=== PATIENT | male | born 1980 | race Caucasian/White ===

== ENCOUNTER 2025-04-18 10:07 | Outpatient (CLI) | payer SELFPAY ==
--- NOTE | 2025-04-18 10:19 | XRR_ITS ---
PROCEDURE INFORMATION: Exam: XR Left Shoulder Exam date and time: 04/18/2025 10:34 AM Age: 44 years old Clinical indication: Left; PT states he tore RT rotator cuff x few months ago. Pain in RT shoulder that feels like it catching. ; Additional info: Complete rotator cuff tear, R shoulder TECHNIQUE: Imaging protocol: Radiologic exam of the left shoulder. Views: 2 or more views. COMPARISON: No relevant prior studies available. FINDINGS: Bones/joints: The humeral head is normally located. The acromioclavicular joint is normal in appearce. No acute osseous abnormalities are identified. Soft tissues: Normal. XR/XR shoulder LT min 2V* [id number] IMPRESSION: No acute process
--- NOTE | 2025-04-18 10:19 | XR_ITS ---
WS: [id number] XR shoulder RT min 2V* [id number] REASON FOR EXAM: COMPLETE ROTATOR CUFF TEAR R SHOULDER FINDINGS: Mild joint space narrowing with minimal subchondral sclerosis and osteophytosis. Normal acromial process orientation. Glenohumeral joint space is not well demonstrated. Possibly mildly narrowed. Mild subchondral sclerosis in the glenoid with minimal osteophytosis of the humeral head. Significant sclerosis in the biceps tuberosity. Possibly a decreased humeral acromial interval. XR/XR shoulder RT min 2V* [id number] IMPRESSION: Minimal osteoarthritis of the acromioclavicular joint. Probable mild osteoarthritis of the glenohumeral joint. Significant rotator cuff tendon arthropathy and possible narrowing of the humer al acromial interval suggests significant rotator cuff tendon tendinosis.
== END 2025-04-18 10:08 | disposition home or self-care (01) ==
LOC: RAD 10:12
PROVIDERS: PCP Internal Medicine; Visit Provider Internal Medicine
DX: M75.121 Complete rotator cuff tear or rupture of right shoulder, not specified as traumatic (principal)
CPT/HCPCS: 73030